=== PATIENT | male | born 1975 | race Hispanic/Latino ===

== ENCOUNTER 2017-04-05 18:13 | Emergency (ER) | payer SELFPAY ==
--- NOTE | 2017-04-05 18:59 | RAD ---
EXAM: THREE VIEWS LUMBAR SPINE 04/05/17 HISTORY: Injury and pain. COMPARISON: None. FINDINGS: There are five lumbar type vertebral bodies. Straightening of the normal lumbar lordosis is noted. V ertebral body heights are maintained. No fracture. No spondylolisthesis or spondylolysis. IMPRESSION: No fracture. POS: [facility]
[2017-04-05] MEDS ORDERED: Ketorolac Tromethamine 30 MG/ML VIAL ONE (19:13)
[2017-04-05 19:23] LABS: INR-International Normal Ratio 0.9; Prothrombin Time 12.7 SEC (12.0-14.7)
[2017-04-05 19:24] LABS: PTT 31.3 SEC (22.9-36.1)
[2017-04-05 19:28] LABS: Hemoglobin 15.4 g/dL (14.0-18.0); Mean Corpuscular HGB CONC 36.6 g/dL (32.0-36.0); Mean Corpuscular Hemoglobin 34.7 pg (27.0-31.0); Mean Platelet Volume 7.6 fL (7.4-10.4); Platelet Count 184 thou/uL (130-400); RBC Distribution Width 11.6 % (11.5-14.5); Red Blood Cell (RBC) Count 4.43 mill/uL (4.70-6.10); White Blood Cell (WBC) Count 7.5 thou/uL (4.8-10.8)
[2017-04-05 19:33] LABS: ALT (SGPT) 55 U/L (8-55); AST (SGOT) 30 U/L (5-34); Albumin 4.1 g/dL (3.5-5.0); Alkaline Phosphatase 104 U/L (40-150); Anion Gap 15 mmol/L (10-20); BUN (Urea Nitrogen) 12 mg/dL (8.9-20.6); Bilirubin, Total 0.3 mg/dL (0.2-1.2); CK (CPK) 184 U/L (30-200); Calc. Creatinine Clearance 0 mL/min (70-130); Calcium 8.3 mg/dL (7.8-10.44); Carbon Dioxide 19 mmol/L (22-29); Chloride 112 mmol/L (98-107); Estimated GFR-MDRD Greater than 90; Globulin 2.9 g/dL (2.4-3.5); Glucose 104 mg/dL (70-105); Lipase 61 U/L (8-78); Potassium 3.6 mmol/L (3.5-5.1); Sodium 142 mmol/L (136-145)
[2017-04-05 19:43] LABS: #Basophils 0.1 thou/uL (0.0-0.2); #Eosinphils 0.1 thou/uL (0.0-0.7); #Lymphocytes 2.6 thou/uL (1.20-3.40); #Monocytes 0.4 thou/uL (0.11-0.59); #Neutrophils 4.3 thou/uL (1.40-6.50); %Basophils 0.9 % (0.0-1.0); %Eosinophils 1.4 % (0.0-10.0); %Lymphocytes 35.1 % (21.0-51.0); %Monocytes 4.8 % (0.0-10.0); %Neutrophils 57.9 % (42.0-75.0); PLT Morphology Comment Appears Adequate; RBC Morphology Normal
[2017-04-05 19:45] LABS: MDiff Complete? YES; Manual Diff?? NO
== END 2017-04-05 19:42 | disposition home or self-care (01) ==
LOC: BURERS 18:13
DX: M54.5 Low back pain (principal); F10.129 Alcohol abuse with intoxication, unspecified; F17.210 Nicotine dependence, cigarettes, uncomplicated
CPT/HCPCS: 36415; 72100; 80053; 82550; 83690; 85025; 85610; 85730; 96374; J1885